=== PATIENT | male | born 1970 | race African-American/Black ===

== ENCOUNTER 2018-11-01 11:49 | Inpatient (IN) | payer BC, MEDICARE, OTHER ==
[~2018-11-01] VITALS: Ht 190.5 cm; Wt 127.0 kg
--- NOTE | ~2018-11-01 | CON ---
[address] [address] CONSULTATION Name: MCCLELLANMARII Room: [address] IN .R.#: [id number] Admission: 11/01/18 Attend Phys: Dima Griffin Discharge: 11/02/18 Date of : 68 Report #: [id number] THIS REPORT FOR: //name// CC: Mason Sosa DATE OF SERVICE: 11/02/2018 REQUESTING PHYSICIAN: Dr. Sosa. REASON FOR CONSULTATION: Assist in providing dialysis. HISTORY OF PRESENT ILLNESS: The patient is a 48-year-old gentleman with medical history significant for end-stage renal disease, diabetes mellitus type 2, peripheral artery disease, coronary artery disease, HIV infection who missed his dialysis, admitted with volume overload and hyperkalemia. He presents with shortness of breath, weakness. His potassium was 6.0 and he dialyzed urgently yesterday and is on dialysis now. PAST MEDICAL HISTORY: As I mentioned earlier. SOCIAL HISTORY: Negative for tobacco or alcohol abuse. FAMILY HISTORY: Noncontributory. MEDICATIONS: Prior to admission reviewed. From my standpoint, he is on insulin, Coreg, omeprazole, Plavix, Elvitegravir, atorvastatin, Abacavir, hydralazine, lamivudine and calcium acetate. PHYSICAL EXAMINATION: GENERAL: I examined on dialysis. He is awake, alert, feeling much better and wants to go home. VITAL SIGNS: Blood pressure 113/70, heart rate 73, afebrile. HEENT: Pupils are round. NECK: Supple. LUNGS: Clear. CARDIOVASCULAR: Regular rate. ABDOMEN: Soft. LOWER EXTREMITIES: No edema. ASSESSMENT: 1. End-stage renal disease, admitted with fluid overload, hyperkalemia. 2. Diabetes mellitus type 2. 3. Coronary artery disease. 4. [place] [address] CONSULTATION Name: MARII MCCLELLAN Room: [address]#: [id number] Admission: 11/01/18 Attend Phys: Dima Griffin Discharge: 11/02/18 Date of : 68 Report #: [id number] 5. Human immunodeficiency virus infection. PLAN: Dialyzed yesterday and today. From my standpoint, he is okay to go home. By: [id number] Roy MD /POLY
[~2018-11-01 11:49] MED LIST: ATRIPLA TABLET1 EACH PO; COREG25 MG PO; HUMALOG100 UNIT/2 SQ; IMDUR 30 MG TAB30 M1 PO; LANTUS100 UNIT/M SUBQ; NEURONTIN600 MG PO; NORVASC5 MG PO; OMEPRAZOLE20 M2 PO; PLAVIX 75 MG TA75 M1 PO; TRAMADOL 50 MG50 MG PO; XANAX1 MG PO
[2018-11-01 11:56] VITALS: BP 148/100
[2018-11-01] MEDS ORDERED: BUPROPION HCL150 MG PO (12:32)
[2018-11-01] MEDS ORDERED: VITAMIN D3400 UNIT PO (12:32)
[2018-11-01] MEDS ORDERED: ASPIRIN325 PO (12:33)
[2018-11-01] MEDS ORDERED: ISENTRESS400 MG PO (12:33)
[2018-11-01] MEDS ORDERED: LIPITOR40 MG PO (12:33)
[2018-11-01] MEDS ORDERED: ZIAGEN 300 MG300 MG PO (12:34)
[2018-11-01] MEDS ORDERED: HYDRALAZINE 2525 MG PO (12:35)
[2018-11-01] MEDS ORDERED: [UNRECOGNIZED DRUG - OTHER] PO (12:35)
[2018-11-01] MEDS ORDERED: PHENERGAN 25 MG25 M1 PO (12:36)
[2018-11-01] MEDS ORDERED: RENAL CAPS SOFTG1 MG PO (12:36)
[2018-11-01 12:38] LABS: ABSOLUTE BASOPHILS 0.1 thou/uL (0.0-0.2); ABSOLUTE EOSINOPHILS 0.1 thou/uL (0.0-0.7); ABSOLUTE LYMPHOCYTES 1.7 thou/uL (0.8-5.3); ABSOLUTE MONOCYTES 0.6 thou/uL (0.0-1.2); ABSOLUTE NEUTROPHILS 4.4 thou/uL (1.6-8.1); BASOPHILS 0.9 %; EOSINOPHILS 1.9 %; HEMATOCRIT 37.2 % (42.0-52.0); HEMOGLOBIN 12.5 gm/dL (14.0-18.0); LYMPHOCYTES 24.4 %; MCHC 33.6 g/dL (28.0-37.0); MCV 98.3 fL (80.0-100.0); MONOCYTES 9.2 %; MPV 8.3 fl. (7.2-11.1); NUCLEATED RBCS 0 /100WBC; PLATELET COUNT* 190 thou/uL (150-400); POLYS 63.6 %; RBC 3.79 mil/uL (4.50-6.00); RDW-CV 17.2 % (10.5-14.5)
[2018-11-01 12:46] LABS: PROTIME 10.7 Seconds (9.20-11.50)
[2018-11-01 12:49] LABS: ANION GAP 20 mmol/L (7-16); BUN 96 mg/dL (7-18); CALCIUM 6.4 mg/dL (8.5-10.1); CHLORIDE 97 mmol/L (98-107); CO2 20 mmol/L (21-32); GLUCOSE 143 mg/dL (70-99); SODIUM 137 mmol/L (136-145)
[2018-11-01 12:59] LABS: ALBUMIN 3.7 g/dL (3.4-5.0); ALKALINE PHOSPHATASE 58 U/L (46-116); LIPASE 208 U/L (73-393); NT-PRO BRAIN NAT PEPTIDE 3850 pg/mL (<300); SGOT 26 U/L (15-37); SGPT 28 U/L (30-65); TOTAL BILIRUBIN 0.4 mg/dL (<0.1-1.0); TOTAL PROTEIN 7.9 g/dL (6.4-8.2); TROPONIN-I LEVEL <0.06 ng/mL (<0.06)
[2018-11-01 15:26] VITALS: BP 168/83
[2018-11-01 15:40] VITALS: BP 144/72
--- NOTE | 2018-11-01 16:19 | EKG ---
[place] [address] ELECTROCARDIOGRAM REPORT Name: MARII MCCLELLAN Room: [address] ADM IN M.R.#: [id number] Admission: 11/01/18 Attend Phys: Dima Griffin Discharge: Date of : 68 Report #: [id number] THIS REPORT FOR: //name// [facility] ED Test Date: 2018-11-01 Test Time: 12:54:12 Pat Name: MARII MCCLELLAN Department: Room: [facility] Gender: M Skein Drier: : 1970 Requested By: Heather Hassan Order Number: [id number] MD: Ant Briseno Measurements Intervals [place] Rate: 70 P: 60 ND: 202 QRS: 29 QRSD: 105 T: 43 QT: 444 QTc: 480 Interpretive Statements Sinus rhythm Borderline prolonged ND interval Compared to ECG 09/15/2014 09:49:05 Myocardial infarct finding no longer present Electronically Signed On 11-01-2018 16:19:31 CDT by Ant Briseno [email or web address] <ELECTRONICALLY SIGNED> By: Ant Briseno MD, [facility] 11/01/18 1619 1254 [id number] Ant Briseno MD, [facility] /EPI
[2018-11-01] MEDS ORDERED: PHOSLYRA667 MG/5 M PO (16:28)
--- NOTE | 2018-11-01 17:28 | 2DMMODE ---
[place] [address] 2 D/M-MODE ECHOCARDIOGRAM Name: MARII MCCLELLAN Room: [address] IN [facility]#: [id number] Admission: 11/01/18 Attend Phys: Dima ghotra Sa Discharge: Date of : 68 Date of Service: 11/01/18 1727 Report #: [id number] THIS REPORT FOR: //name// APPROVED REPORT Study performed: 11/01/2018 16:28:53 EXAM: Comprehensive 2D, Doppler, and color-flow Echocardiogram Patient Location: In-Patient Room #: 210 Status: routine BSA: 2.52 HR: 72 bpm BP: 168/83 mmHg Rhythm: NSR Other Information Study Quality: Good Indications Dyspnea 2D Dimensions IVSd: 12.24 (7-11mm) LVOT Diam: 24.02 (18-24mm) LVDd: 42.73 mm PWd: 11.02 (7-11mm) Ascending Ao: 36.58 (22-36mm) LVDs: 29.40 (25-40mm) Aortic Root: 38.20 mm Volumes Left Atrial Volume (Systole) LA ESV Index: 38.20 mL/m2 Aortic Valve AoV Peak Bakari.: 1.12 m/s AO Peak Gr.: 5.03 mmHg LVOT Max P.17 mmHg AO Mean Gr.: 3.22 mmHg LVOT Mean P.46 mmHg LVOT Max V: 1.14 m/s AO V2 VTI: 28.99 cm LVOT Mean V: 0.72 m/s PATTI (VTI): 4.60 cm2 LVOT V1 VTI: 29.43 cm Mitral Valve E/A Ratio: 1.52 MV Decel. Time: 252.78 ms MV E Max Bakari.: 1.00 m/[place] [address] 2 D/M-MODE ECHOCARDIOGRAM Name: MARII MCCLELLAN Room: [address] IN .R.#: [id number] Admission: 11/01/18 Attend Phys: Dima ghotra Sa Discharge: Date of : 68 Date of Service: 11/01/18 1727 Report #: [id number] MV PHT: 73.31 ms MVA (PHT): 3.00 cm2 TDI E/Lateral E': 7.69 E/Medial E': 9.09 Medial E' Bakari.: 0.11 m/s Lateral E' Bakari.: 0.13 m/s Pulmonary Valve PV Peak Bakari.: 0.97 m/s PV Peak Gr.: 3.78 mmHg Tricuspid Valve RAP Estimate: 5.00 mmHg TR Peak Gr.: 29.45 mmHg RVSP: 34.00 mmHg PA Pressure: 34.00 mmHg Left Ventricle The left ventricle is normal size. There is normal LV segmental wall motion. There is normal left ventricular wall thickness. Left ventricular systolic function is normal. LVEF is 65-70%. The left ventricular diastolic function is normal. Right Ventricle The right ventricle is normal size. The right ventricular systolic function is normal. Atria Left atrium is mildly dilated. The right atrium size is normal. Aortic Valve The aortic valve is normal in structure. No aortic regurgitation is present. There is no aortic valvular stenosis. Mitral Valve The mitral valve is normal in structure. Trace mitral regurgitation. No evidence of mitral valve stenosis. Tricuspid Valve The tricuspid valve is normal in structure. Trace tricuspid regurgitation. The RVSP is 35-40 mmHg. Pulmonic Valve The pulmonary valve is normal in structure. There is no pulmonic [place] [address] 2 D/M-MODE ECHOCARDIOGRAM Name: MARII MCCLELLAN Room: [address] IN [facility]#: [id number] Admission: 11/01/18 Attend Phys: Dima ghotra Sa Discharge: Date of : 68 Date of Service: 11/01/18 1727 Report #: [id number] Great Vessels The aortic root is normal in size. IVC is not well visualized. Pericardium There is no pericardial effusion. <Conclusion> The left ventricle is normal size. There is normal left ventricular wall thickness. Left ventricular systolic function is normal. LVEF is 65-70%. The left ventricular diastolic function is normal. Trace tricuspid regurgitation. The RVSP is 35-40 mmHg. <ELECTRONICALLY SIGNED> By: Ant Briseno MD, FACC 11/01/18 172 26 26 Ant Briseno MD, FACC /INF
[2018-11-01 19:40] VITALS: BP 158/89
[2018-11-02] VITALS: BP 115/69
[2018-11-02 04:00] VITALS: BP 101/43
[2018-11-02 04:27] LABS: HEMATOCRIT 35.5 % (42.0-52.0); HEMOGLOBIN 11.7 gm/dL (14.0-18.0); MCH 32.9 pg (26.0-34.0); MCHC 33.1 g/dL (28.0-37.0); MCV 99.5 fL (80.0-100.0); MPV 8.8 fl. (7.2-11.1); RBC 3.57 mil/uL (4.50-6.00); RDW-CV 17.7 % (10.5-14.5); WBC 5.4 thou/uL (4.0-11.0)
[2018-11-02 05:04] LABS: ALBUMIN 3.3 g/dL (3.4-5.0); CALCIUM 6.4 mg/dL (8.5-10.1)
[2018-11-02 05:10] LABS: CREATININE 12.8 mg/dL (0.6-1.3); POTASSIUM 4.5 mmol/L (3.5-5.1)
[2018-11-02 07:50] VITALS: BP 113/70
[2018-11-02 17:22] VITALS: BP 113/70
[2018-11-03 02:06] LABS: HEPATITIS B SURFACE AG Negative (Negative)
== END 2018-11-02 18:20 | disposition home or self-care (01) | DRG 640 ==
LOC: M.ERS 11:49 → M.TBA-ER 13:36 → M.2W 13:36
PROVIDERS: Internal Medicine Nephrology; Personal Emergency Response Attendant; ADMIT Family Medicine
PROC: 5A1D70Z Performance of Urinary Filtration, Intermittent, Less than 6 Hours Per Day (ICD-10-PCS; principal; 2018-11-01)
PROC: 5A1D70Z Performance of Urinary Filtration, Intermittent, Less than 6 Hours Per Day (ICD-10-PCS; 2018-11-02)
DX: E87.5 Hyperkalemia (principal); N18.6 End stage renal disease; I12.0 Hypertensive chronic kidney disease with stage 5 chronic kidney disease or end stage renal disease; E11.51 Type 2 diabetes mellitus with diabetic peripheral angiopathy without gangrene; I25.10 Atherosclerotic heart disease of native coronary artery without angina pectoris; E87.70 Fluid overload, unspecified; E78.5 Hyperlipidemia, unspecified; F41.9 Anxiety disorder, unspecified; F32.9 Major depressive disorder, single episode, unspecified; E11.22 Type 2 diabetes mellitus with diabetic chronic kidney disease; Z89.512 Acquired absence of left leg below knee; Z89.511 Acquired absence of right leg below knee; Z79.4 Long term (current) use of insulin; I25.2 Old myocardial infarction; Z88.6 Allergy status to analgesic agent; Z88.8 Allergy status to other drugs, medicaments and biological substances; Z95.5 Presence of coronary angioplasty implant and graft; Z87.891 Personal history of nicotine dependence; Z99.2 Dependence on renal dialysis; Z23 Encounter for immunization

== ENCOUNTER 2019-03-10 21:17 | Inpatient (IN) | payer BC, MEDICARE ==
[~2019-03-10] VITALS: Ht 188 cm; Wt 127.0 kg
--- NOTE | ~2019-03-10 | H ---
[address] [address] HISTORY AND PHYSICAL Name: MARII MCCLELLAN Room: [address]#: [id number] Admission: 03/10/19 Attend Phys: Gerson Lynn Discharge: 03/11/19 Date of : 68 Report #: [id number] THIS REPORT FOR: //name// cc: Mason Allen MD, Daljeet MD ~ THIS REPORT FOR: //name// Patient was here less than 24 hour please refer to the final summation note. Patient left AMA. By: 1236Medical Records Staff DIAMANTE /JONAS
--- NOTE | ~2019-03-10 | EKG ---
[place] [address] ELECTROCARDIOGRAM REPORT Name: MARII MCCLELLAN Room: [facility]#: [id number] Admission: 03/10/19 Attend Phys: Discharge: Date of : 68 Date of Service: 03/10/192120 Report #: [id number] THIS REPORT FOR: cc: Mason Allen MD, Daljeet MD Epiphany, Epiphany MD ~ THIS REPORT FOR: //name// [facility] ED Test Date: 2019-03-10 Test Time: 21:21:25 Pat Name: MARII MCCLELLAN Department: Room: Gender: M [employer]placement [employer]derer: [place] : 1970 Requested By: Heather Hassan Order Number: [id number] MD: Measurements Intervals [place] Rate: 92 P: 77 PA: 196 QRS: 74 QRSD: 109 T: 80 QT: 402 QTc: 498 Interpretive Statements Sinus rhythm RSR' in V1 or V2, right VCD or RVH Borderline prolonged QT interval Compared to ECG 11/01/2018 12:54:12 Right ventricular hypertrophy now present RSR' in V1 or V2 now present [email or web address] By: 20 20 Epiphany EpiphanyMD /AVELINO
[~2019-03-10 21:17] MED LIST changes: +ASPIRIN325 PO; +BUPROPION HCL150 MG PO; +HYDRALAZINE 2525 MG PO; +ISENTRESS400 MG PO; +LIPITOR40 MG PO; +PHENERGAN 25 MG25 M1 PO; +PHOSLYRA667 MG/5 M PO; +RENAL CAPS SOFTG1 MG PO; +VITAMIN D3400 UNIT PO; +ZIAGEN 300 MG300 MG PO; +[UNRECOGNIZED DRUG - OTHER] PO
[2019-03-10 21:22] VITALS: BP 205/94
[2019-03-10 22:06] LABS: ABSOLUTE BASOPHILS 0.1 thou/uL (0.0-0.2); ABSOLUTE EOSINOPHILS 0.3 thou/uL (0.0-0.7); ABSOLUTE LYMPHOCYTES 2.2 thou/uL (0.8-5.3); ABSOLUTE MONOCYTES 0.5 thou/uL (0.0-1.2); ABSOLUTE NEUTROPHILS 4.5 thou/uL (1.6-8.1); BASOPHILS 1.1 %; EOSINOPHILS 4.1 %; HEMATOCRIT 31.1 % (42.0-52.0); HEMOGLOBIN 10.4 gm/dL (14.0-18.0); MCH 32.3 pg (26.0-34.0); MCHC 33.3 g/dL (28.0-37.0); MONOCYTES 7.1 %; MPV 7.9 fl. (7.2-11.1); NUCLEATED RBCS 0 /100WBC; PLATELET COUNT* 256 thou/uL (150-400); POLYS 58.7 %; RBC 3.21 mil/uL (4.50-6.00); RDW-CV 18.1 % (10.5-14.5); WBC 7.6 thou/uL (4.0-11.0)
[2019-03-10 22:16] LABS: CALCIUM 6.5 mg/dL (8.5-10.1); CREATININE 12.8 mg/dL (0.6-1.3); POTASSIUM 4.7 mmol/L (3.5-5.1)
[2019-03-10 22:27] LABS: ALBUMIN 3.2 g/dL (3.4-5.0); TOTAL BILIRUBIN 0.3 mg/dL (<0.1-1.0); TOTAL PROTEIN 7.6 g/dL (6.4-8.2)
[2019-03-10 22:34] LABS: INFLUENZA A ANTIGEN Negative (Negative); INFLUENZA B ANTIGEN Negative (Negative)
[2019-03-10 23:30] VITALS: BP 225/132
[2019-03-11 02:40] VITALS: BP 200/120
[2019-03-11 04:17] VITALS: BP 189/160
== END 2019-03-11 08:30 | disposition left against medical advice (07) | DRG 189 ==
LOC: M.ERS 21:17 → M.TBA-ER 22:42 → M.2W 23:26
PROVIDERS: Personal Emergency Response Attendant; ADMIT Internal Medicine
DX: J81.0 Acute pulmonary edema (principal); N18.6 End stage renal disease; I12.0 Hypertensive chronic kidney disease with stage 5 chronic kidney disease or end stage renal disease; E11.51 Type 2 diabetes mellitus with diabetic peripheral angiopathy without gangrene; E11.22 Type 2 diabetes mellitus with diabetic chronic kidney disease; Z53.29 Procedure and treatment not carried out because of patient's decision for other reasons; Z79.4 Long term (current) use of insulin; I25.2 Old myocardial infarction; Z88.6 Allergy status to analgesic agent; Z88.8 Allergy status to other drugs, medicaments and biological substances; Z79.899 Other long term (current) drug therapy